=== PATIENT | female | born 1980 | race Caucasian/White ===

== ENCOUNTER 2016-12-24 06:50 | Day surgery (SDC) | payer MEDICAID ==
[~2016-12-24 06:50] MED LIST: Bacitracin Oint 1 GM U/D Packet ONE; Bupivacaine 0.5% 50 ML MDV ONE; Lidocaine 1% with EPINEPHrine 1:100,000 50 ML MDV ONE
[2016-12-24] MEDS ORDERED: Rocuronium 50 MG/5 ML Vial ONE (07:06)
[2016-12-24] MEDS ORDERED: Propofol 200 MG/20 ML SDV ONE (07:06)
[2016-12-24] MEDS ORDERED: Dexamethasone 4 MG/ML SDV ONE (07:06)
[2016-12-24] MEDS ORDERED: Neostigmine Methylsulfate 1 MG/ML 5 ML Syringe ONE (07:06)
[2016-12-24] MEDS ORDERED: Succinylcholine 200 MG/10 ML MDV ONE (07:06)
[2016-12-24] MEDS ORDERED: Ondansetron 4 MG/2 ML SDV ONE ×2 (07:06→09:10)
[2016-12-24] MEDS ORDERED: Glycopyrrolate 0.2 MG/ML 5 ML MDV ONE (07:06)
[2016-12-24] MEDS ORDERED: metroNIDAZOLE/Normal Saline 500 MG in Premix Bag 1 BAG IV ONE (07:30)
[2016-12-24] MEDS ORDERED: Scopolamine 1.5 MG Transdermal Patch TRDERM SCH (07:45)
[2016-12-24] MEDS: Sodium Chloride 0.9% 1,000 ML IV SCH ×2 (07:57→12:18)
[2016-12-24] MEDS ORDERED: diphenhydrAMINE 50 MG/ML SDV IVPUSH PRN (08:17)
[2016-12-24] MEDS ORDERED: Zolpidem 5 MG Tab PO PRN (08:17)
[2016-12-24] MEDS ORDERED: Benzocaine/Cetylpyridinium/Menthol Lozenge MUCMEM PRN (08:17)
[2016-12-24] MEDS ORDERED: Ciprofloxacin in D5W 400 MG in Premix Bag 1 BAG IV ONE ×2 (08:30)
[2016-12-24] MEDS ORDERED: Ketorolac 60 MG/2 ML SDV ONE (09:19)
[2016-12-24] MEDS ORDERED: hydrOXYzine HCl 100 MG/2 ML SDV IM ONE (10:30)
[2016-12-24] MEDS ORDERED: Metoclopramide 10 MG/2 ML SDV IVPUSH ONE (10:30)
--- NOTE | 2016-12-24 11:34 | OR ---
DATE OF PROCEDURE: 12/24/2016 PROCEDURES PERFORMED: 1. Laparoscopic cholecystectomy. 2. Liver biopsy. COMPLICATIONS: None. SPECIAL EDUCATION COORDINATOR: None. ANESTHESIA: General/local. INDICATIONS: This is a 36-year-old female with cholelithiasis, cholecystitis, and elevated liver function tests, requiring gallbladder removal and liver biopsy. RISKS: Risks, benefits, alternatives, and limitations including, but not limited to infection, bleeding, injury to common bile duct, cystic duct leaks, abscess, biloma, possibility of open surgery, and other risks were explained to the patient, and she wished to proceed. PROCEDURE IN DETAIL: The patient was placed in supine position. A supraumbilical curvilinear incision was made. A Veress needle was used to enter the abdomen without abnormality. A drop test was performed without abnormality. The abdomen was subsequently insufflated. This was followed by an Optiview trocar. An additional 10 and two 5 mm ports were entered under direct visualization. The gallbladder was retracted cephalad. The infundibulum was retracted inferolaterally. It was immediately noted that there was a large amount of inflammation around the gallbladder itself. During this process, blunt and sharp dissection were used in combination to reflect the stomach and its associated adhesions from the gallbladder itself. The anatomy of the gallbladder was unique. This had a significant fold associated with this. Photos were taken of the gallbladder itself. It was reflected back on itself. Therefore, the gallbladder was completely dissected off the gallbladder bed prior to transsection of the gallbladder. A complete dissection of this was then performed using blunt dissection with one pulsatile structure in the gallbladder and a single nonpulsatile structure in the gallbladder. Once this was completed, a blue load stapler was used to transect the cystic duct in close proximity to the gallbladder. This was verified that the byron were completely crossed. Photos were taken of this. The gallbladder was removed without difficulty using a bag through the upper port. The ports were then thoroughly irrigated. The wound was closed with 3-0 Vicryl and 4-0 Vicryl interrupted running fashion. Local was applied. The patient tolerated the procedure well. uT Umana MD /[id number]
[2016-12-24] MEDS ORDERED: Acetaminophen/HYDROcodone 325-5 MG Tab PO PRN (14:01)
[2016-12-24 14:47] VITALS: BP 98/47
== END 2016-12-24 18:00 | disposition home or self-care (01) ==
LOC: JP.SDS 06:50 → JP.MS 08:17 → JP.SDS 18:00
PROVIDERS: ATTEND Surgery
DX: K80.12 Calculus of gallbladder with acute and chronic cholecystitis without obstruction (principal); K76.0 Fatty (change of) liver, not elsewhere classified; Z88.0 Allergy status to penicillin; Z91.030 Bee allergy status; Z88.8 Allergy status to other drugs, medicaments and biological substances; F17.210 Nicotine dependence, cigarettes, uncomplicated; Z91.09 Other allergy status, other than to drugs and biological substances
CPT/HCPCS: 36415; 47001; 47562; 80053; 85027; A9270; J0330; J0744; J1100; J1885; J2405; J2704; J2710; J2765; J3010; J3410; J7040; 88304; 88307; 88313

== ENCOUNTER 2017-07-27 21:25 | Emergency (ER) | payer MEDICAID ==
[2017-07-27 21:36] VITALS: BP 126/69
[2017-07-27] MEDS ORDERED: cefTRIAXone 1 GM, Lidocaine 1% 2.1 ML IM ONE ×4 (21:52→22:29)
[2017-07-27] MEDS ORDERED: Ketorolac 60 MG/2 ML SDV IM ONE (21:53)
--- NOTE | 2017-07-27 22:03 | EDM.PDOC ---
ED HPI GENERAL MEDICAL PROBLEM - General Chief Complaint: Lower Extremity Injury/Pain Stated Complaint: LEFT KNEE POSSIBLE INFECTION Time Seen by Provider: 07/27/17 21:43 Source of Information: Reports: Patient History Limitations: Reports: No Limitations - History of Present Illness INITIAL COMMENTS - FREE TEXT/NARRATIVE: 36 yo female presents with left knee pain. 3 weeks ago left knee surgery, over the last 3 days increase in pain and swelling of left knee. warm to the touch. mild body aches. denies fever or shills. denies SOB, CP, nausea or vomiting. left knee Pain Score (Numeric/FACES): 8 - Related Data Allergies Allergy/AdvReac Type Severity Reaction Status Date / Time bee venom protein (honey bee) Allergy Swelling Verified 07/27/17 21:36 Penicillins Allergy Hives Verified 07/27/17 21:36 ferrous sulfate AdvReac Vomiting Verified 07/27/17 21:36 [From Adam-Iron] Home Meds: Home Meds EPINEPHrine [Epipen] 0.3 ml IM ASDIRECTED PRN 01/13/15 [History] Hydrocodone/Acetaminophen [[place] 10-325 Tablet] 1 tab PO Q6HR PRN 12/20/16 [ History] Omeprazole Magnesium [Prilosec Otc] 40 mg PO DAILY 12/20/16 [History] Past Medical History Gastrointestinal History: Reports: Cholelithiasis Genitourinary History: Reports: Renal Calculus, UTI, 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: Hematologic History: Reports: Anemia, Other (See Below) Other Hematologic History: anemia during - Past Surgical History GI Surgical History: Reports: Appendectomy, Cholecystectomy Female Surgical History: Reports: Section, Tubal Ligation 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 Surgical History: Reports: Arthroscopic Knee, Carpal Tunnel, Other (See Below) Other 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 Surgeries/Procedures:: bunionectomy right foot Social & Family History - Tobacco Use Smoking Status *Q: Current Every Day Smoker Years of Tobacco use: 20 Packs/Tins Daily: 0.5 - Caffeine Use Caffeine Use: Reports: Coffee Review of Systems - Review of Systems Review Of Systems: See Below Constitutional: Denies: Chills, Fever Respiratory: Denies: Shortness of Breath Cardiovascular: Denies: Chest Pain GI/Abdominal: Denies: Abdominal Pain 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: Reports: Joint Pain ED EXAM, GENERAL - Physical Exam Exam: See Below Exam Limited By: No Limitations General Appearance: Alert, WD/WN, No Apparent Distress Respiratory/Chest: No Respiratory Distress, Lungs Clear, Normal Breath Sounds Cardiovascular: Regular Rate, Rhythm, No Murmur Extremities: Joint Swelling (left knee), Increased Warmth, Redness, Other ( scant drainage at incision, appearance of retained stich at distill end of ) Skin Exam: Warm, Dry, Intact, No Rash Course - Vital Signs Last Recorded V/S: Last Vital Signs Temp 37.3 C 07/27/17 21:39 Pulse 90 07/27/17 21:39 Resp 18 07/27/17 21:39 BP 126/69 07/27/17 21:39 Pulse Ox 97 07/27/17 21:39 - Orders/Labs/Meds Orders: Active Orders 24 hr Category Date Time Status CBC WITH AUTO DIFF [HEME] Stat Lab 07/27/17 22:31 Results CRP [C-REACTIVE PROTEIN] [CHEM] Stat Lab 07/27/17 22:31 Received CULTURE WOUND + SMEAR [RM] Stat Lab 07/27/17 22:30 Ordered SEDIMENTATION RATE MANUAL [HEME] Stat Lab 07/27/17 22:31 Results Labs: Laboratory Tests 07/27/17 Range/Units 22:31 WBC 14.8 H (4.5-11.0) K/uL RBC 4.12 (3.30-5.50) M/uL Hgb 13.1 (12.0-15.0) g/dL Hct 37.7 (36.0-48.0) % MCV 92 (80-98) fL MCH 32 H (27-31) pg MCHC 35 (32-36) % Plt Count 248 (150-400) K/uL Neut % (Auto) 74 H (36-66) % Lymph % (Auto) 15 L (24-44) % [place] % (Auto) 9 H (2-6) % Eos % (Auto) 2 (2-4) % Baso % (Auto) 0 (0-1) % Meds: Medications Discontinued Medications Generic Name Dose Route Start Last Admin Trade Name Freq PRN Reason Stop Dose Admin Ceftriaxone Sodium 1 gm/ 0 gm 07/27/17 21:52 07/27/17 22:04 Lidocaine HCl 2.1 ml IM 07/27/17 21:53 1 inj ONETIME ONE Administration Ceftriaxone Sodium 1 gm/ 0 gm 07/27/17 22:29 Lidocaine HCl 2.1 ml IM 07/27/17 22:30 ONETIME ONE Ketorolac Tromethamine 60 mg 07/27/17 21:53 07/27/17 22:04 Toradol IM 07/27/17 21:54 60 mg ONETIME ONE Administration - Re-Assessments/Exams Free Text/Narrative Re-Assessment/Exam: 07/27/17 22:40 IM Rocephin 2 G. phone contact with [facility]. instructed to have pt follow-up in urgent care tomorrow afternoon at 1300 Departure - Departure Time of Disposition: 22:44 Disposition: Home, Self-Care 01 Condition: Good Clinical Impression: Knee pain, acute Qualifiers: Laterality: left Qualified Code(s): M25.562 - Pain in left knee Post op infection Qualifiers: Encounter type: initial encounter Qualified Code(s): T81.4XXA - Infection following a procedure, initial encounter - Discharge Information Referrals: Jose Sands MD [Primary Care Provider] - Forms: ED Department Discharge Additional Instructions: follow-up in [facility] [place] tomorrow at 1300 may use NOrco that you have at home as prescribed tonight for pain control you were given 2 G of Rochephin in the Emergency room tonight also given 60 mg of Ketoralac Lab values from tonights visit WBC 14.8 Neut % 74 Lymph% 15 [place] % 9 SED and CRP were pending at the time of DC - My Orders Last 24 Hours: My Active Orders 07/27/17 22:30 CULTURE WOUND + SMEAR [RM] Stat 07/27/17 22:31 CBC WITH AUTO DIFF [HEME] Stat CRP [C-REACTIVE PROTEIN] [CHEM] Stat SEDIMENTATION RATE MANUAL [HEME] Stat - Assessment/Plan Last 24 Hours: My Active Orders 07/27/17 22:30 CULTURE WOUND + SMEAR [RM] Stat 07/27/17 22:31 CBC WITH AUTO DIFF [HEME] Stat CRP [C-REACTIVE PROTEIN] [CHEM] Stat SEDIMENTATION RATE MANUAL [HEME] Stat
== END 2017-07-27 22:55 | disposition home or self-care (01) ==
LOC: JP.ED 21:25
DX: T81.4XXA Infection following a procedure, initial encounter (principal); M25.562 Pain in left knee; F17.210 Nicotine dependence, cigarettes, uncomplicated; Z88.0 Allergy status to penicillin; Z91.030 Bee allergy status; Z91.09 Other allergy status, other than to drugs and biological substances; Z79.899 Other long term (current) drug therapy
CPT/HCPCS: 36415; 85025; 85651; 86140; 87070; 87205; 96372; 99284; J0696; J1885; 87077; 87186

== ENCOUNTER 2018-05-27 17:30 | Emergency (ER) | payer BC, MEDICAID ==
[2018-05-27 17:49] VITALS: BP 129/74
[2018-05-27] MEDS ORDERED: Ketorolac 60 MG/2 ML SDV IM ONE (18:18)
--- NOTE | 2018-05-27 18:33 | EDM.PDOC ---
ED HPI GENERAL MEDICAL PROBLEM - General Chief Complaint: Genitourinary Problem Stated Complaint: abd pain that goes to the back light head also Time Seen by Provider: 05/27/18 18:09 Source of Information: Reports: Patient History Limitations: Reports: No Limitations - History of Present Illness INITIAL COMMENTS - FREE TEXT/NARRATIVE: This lady comes in for left lower quadrant abdominal pain which started earlier today. She also got burning on urination. She's had many urinary tract infections before like 6 or 7 per year but she's never had pain like this before. She denies any fever but thinks maybe she might of had some chills. Bactrim causes sores in her mouth. Left Lower Abdomen Pain Score (Numeric/FACES): 8 - Related Data Allergies Allergy/AdvReac Type Severity Reaction Status Date / Time bee venom protein (honey bee) Allergy Swelling Verified 05/27/18 17:42 Penicillins Allergy Hives Verified 05/27/18 17:42 ferrous sulfate AdvReac Vomiting Verified 05/27/18 17:42 [From Adam-Iron] Home Meds: Home Meds EPINEPHrine [Epipen] 0.3 ml IM ASDIRECTED PRN 01/13/15 [History] Hydrocodone/Acetaminophen [[place] 10-325 Tablet] 1 tab PO Q6HR PRN 12/20/16 [ History] Past Medical History HEENT History: Reports: Impaired Vision Gastrointestinal History: Reports: Cholelithiasis Genitourinary History: Reports: Renal Calculus, UTI, 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: 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 History: Reports: None Endocrine/Metabolic History: Reports: Obesity/BMI 30+ Hematologic History: Reports: Anemia, Other (See Below) Other Hematologic History: anemia during - Infectious Disease History Infectious Disease History: Reports: Chicken Pox - Past Surgical History Head Surgeries/Procedures: Reports: None HEENT Surgical History: Reports: None GI Surgical History: Reports: Appendectomy, Cholecystectomy Female Surgical History: Reports: Section, Tubal Ligation Endocrine Surgical History: Reports: None 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 Surgical History: Reports: Arthroscopic Knee, Carpal Tunnel, Other (See Below) Other 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 Surgeries/Procedures:: bunionectomy right foot Dermatological Surgical History: Reports: None Social & Family History - Tobacco Use Smoking Status *Q: Current Every Day Smoker Years of Tobacco use: 15 Packs/Tins Daily: 0.5 Used Tobacco, but Quit: No Second Hand Smoke Exposure: Yes - Caffeine Use Caffeine Use: Reports: Coffee - Recreational Drug Use Recreational Drug Use: No ED ROS GENERAL - Review of Systems Review Of Systems: ROS reveals no pertinent complaints other than HPI. ED EXAM, RENAL/ - Physical Exam Exam: See Below (The Flomax her carpal tunnel youLow October and obese) Exam Limited By: No Limitations (iron) General Appearance: Alert, WD/WN, Mild Distress (Ligament fingers) GI/Abdominal: Non-Tender (All the way or) Back Exam: No: CVA Tenderness (R), CVA Tenderness (L) Skin Exam: Warm, Dry Course - Vital Signs Last Recorded V/S: Last Vital Signs Temp 35.5 C 05/27/18 17:43 Pulse 67 05/27/18 17:43 Resp 16 05/27/18 17:43 BP 129/74 05/27/18 17:43 Pulse Ox 99 05/27/18 17:43 - Orders/Labs/Meds Orders: Active Orders 24 hr Category Date Time Status CULTURE URINE [RM] Stat Lab 05/27/18 18:22 Ordered Labs: Laboratory Tests 05/27/18 Range/Units 17:49 Urine Color Yellow Urine Appearance Cloudy Urine pH 5.0 (4.5-8.0) Ur Specific [place] 1.020 (1.008-1.030) Urine Protein 30 H (NEGATIVE) mg/dL Urine Glucose (UA) Negative (NEGATIVE) mg/dL Urine Ketones Negative (NEGATIVE) mg/dL Urine Occult Blood Large (NEGATIVE) Urine Nitrite Positive H (NEGATIVE) Urine Bilirubin Negative (NEGATIVE) Urine Urobilinogen Normal (NORMAL) mg/dL Ur Leukocyte Esterase Moderate (NEGATIVE) Urine RBC Packed H (0-5) Urine WBC Packed H (0-5) Ur Epithelial Cells Few Amorphous Sediment Moderate Urine Bacteria Moderate Urine Mucus Few Meds: Medications Discontinued Medications Generic Name Dose Route Start Last Admin Trade Name Freq PRN Reason Stop Dose Admin Ketorolac Tromethamine 60 mg 05/27/18 18:18 Toradol IM 05/27/18 18:19 ONETIME ONE Departure - Departure Time of Disposition: 18:27 Disposition: Home, Self-Care 01 Condition: Fair Clinical Impression: UTI, Urinary tract infectious disease - Discharge Information Referrals: Jose Sands MD [Primary Care Provider] - Additional Instructions: The urine test indicates that you have an infection in the urine. The amount of pain that you are having suggests that it might be starting to get up into the ureters. Because you don't have fever or tenderness over the kidney it probably is not a full-blown kidney infection yet but would progress to that if left untreated. Take the antibiotic Cipro 500 mg 1 tablet twice daily for 7 days. A culture is being done on the urine so if you are not better in 2 days then see your doctor. Sometimes, especially in a person who is had a lot of urinary tract infections, bacteria will develop resistance to antibiotics and the culture would show this. You also received a prescription for [place] 5/325#18 tablets take one or 2 every 4 hours as needed for pain. This medication can cause sedation, impaired driving , and could even lead to addiction if abused. It contains Tylenol. If you decide to take a Tylenol tablet along with 1 tablet of the [place] and just be sure you limit yourself to 4000 mg per day of Tylenol. You may take ibuprofen along with the Cipro and Narco. Be sure to drink a lot of water. See your Dr. or return to ER if no better in 2 days. - My Orders Last 24 Hours: My Active Orders 05/27/18 18:22 CULTURE URINE [RM] Stat - Assessment/Plan Last 24 Hours: My Active Orders 05/27/18 18:22 CULTURE URINE [RM] Stat
== END 2018-05-27 18:39 | disposition home or self-care (01) ==
LOC: JP.ED 17:30
DX: N39.0 Urinary tract infection, site not specified (principal); F17.210 Nicotine dependence, cigarettes, uncomplicated; Z91.030 Bee allergy status; Z79.899 Other long term (current) drug therapy
CPT/HCPCS: 81001; 87086; 96372; 99284; J1885

== ENCOUNTER 2018-10-03 22:28 | Emergency (ER) | payer BC, OTHER ==
[2018-10-03 22:57] VITALS: BP 124/80; PULSE 81
--- NOTE | 2018-10-04 00:36 | CRLCT ---
INDICATION: Abdominal hernia, pain. TECHNIQUE: CT abdomen and pelvis without contrast. COMPARISON: None. FINDINGS: Lower chest: Unremarkable. Liver: Normal in size and attenuation. No masses. Gallbladder and bile ducts: Status post cholecystectomy. Pancreas: Unremarkable. No mass or inflammation. Spleen: Normal in size. No masses. Adrenal glands: Normal in size. No nodules. Kidneys: Nephrolithiasis without hydronephrosis, however there is a stone within the right renal pelvis measuring 11 x 8 millimeters. GI tract: No dilated loops of large or small intestine. Suture line at the cecal tip suggesting prior appendectomy. Vasculature: Unremarkable. Pelvis: Unremarkable. No pelvic masses. Bones: Unremarkable for age. IMPRESSION: 1. Nephrolithiasis without evidence of hydronephrosis or ureteral stone. 2. No dilated bowel or localizing inflammation. Please note that all CT scans at this facility use dose modulation, iterative reconstruction, and/or weight-based dosing when appropriate to reduce radiation dose to as low as reasonably achievable. Dictated by Kee Deleon MD @ Oct 04 2018 12:29AM Signed by Dr. Kee Deleon @ Oct 04 2018 12:34AM
--- NOTE | 2018-10-04 00:41 | EDM.PDOC ---
ED HPI GENERAL MEDICAL PROBLEM - General Chief Complaint: Abdominal Pain Stated Complaint: BULGE IN STOMACH Time Seen by Provider: 10/03/18 23:00 Source of Information: Reports: Patient History Limitations: Reports: No Limitations - History of Present Illness INITIAL COMMENTS - FREE TEXT/NARRATIVE: 38-year-old female who had a vague discomfort in her right abdomen over the past week, has been very active moving and developed worsening pain just right of the umbilicus and feels a "bulge". No nausea or vomiting, bowels are moving, no fevers or chills, no radiation of pain, no decreased appetite. Onset: Gradual Duration: Week(s): (Symptoms have been ongoing for a couple of weeks, much worse the last 24-48 hours) Location: Reports: Abdomen Quality: Reports: Ache, Throbbing Associated Symptoms: Reports: No Other Symptoms Right Middle Abdomen Pain Score (Numeric/FACES): 7 - Related Data Allergies Allergy/AdvReac Type Severity Reaction Status Date / Time bee venom protein (honey bee) Allergy Swelling Verified 05/27/18 17:42 Penicillins Allergy Hives Verified 05/27/18 17:42 ferrous sulfate AdvReac Vomiting Verified 05/27/18 17:42 [From Adam-Iron] Home Meds: Home Meds EPINEPHrine [Epipen] 0.3 ml IM ASDIRECTED PRN 01/13/15 [History] Past Medical History HEENT History: Reports: Impaired Vision Gastrointestinal History: Reports: Cholelithiasis Genitourinary History: Reports: Renal Calculus, UTI, 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: 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 History: Reports: None Endocrine/Metabolic History: Reports: Obesity/BMI 30+ Hematologic History: Reports: Anemia, Other (See Below) Other Hematologic History: anemia during - Infectious Disease History Infectious Disease History: Reports: Chicken Pox - Past Surgical History Head Surgeries/Procedures: Reports: None HEENT Surgical History: Reports: None GI Surgical History: Reports: Appendectomy, Cholecystectomy Female Surgical History: Reports: Section, Tubal Ligation Endocrine Surgical History: Reports: None 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 Surgical History: Reports: Arthroscopic Knee, Carpal Tunnel, Other (See Below) Other 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 Surgeries/Procedures:: bunionectomy right foot Dermatological Surgical History: Reports: None Social & Family History - Family History Family Medical History: Noncontributory - Tobacco Use Smoking Status *Q: Current Every Day Smoker Years of Tobacco use: 20 Packs/Tins Daily: 0.5 - Caffeine Use Caffeine Use: Reports: Coffee Caffeine Use Comment: daily coffee use, rarely drink soda or tea. - Alcohol Use Days Per Week of Alcohol Use: 3 Number of Drinks Per Day: 3 Total Drinks Per Week: 9 - Recreational Drug Use Recreational Drug Use: No ED ROS GENERAL - Review of Systems Review Of Systems: See Below Constitutional: Denies: Fever, Chills, Malaise, Decreased Appetite HEENT: Reports: No Symptoms Respiratory: Denies: Shortness of Breath Cardiovascular: Denies: Chest Pain GI/Abdominal: Reports: Abdominal Pain. Denies: Constipation, Diarrhea, Nausea, Vomiting : Reports: No Symptoms Skin: Reports: No Symptoms Neurological: Reports: No Symptoms ED EXAM, GI/ABD - Physical Exam Exam: See Below Exam Limited By: No Limitations General Appearance: Alert, No Apparent Distress Eyes: Bilateral: Normal Appearance Respiratory/Chest: No Respiratory Distress, Lungs Clear GI/Abdominal Exam: Normal Bowel Sounds, Soft, Tender (She is tender to palpation just to the right of the umbilicus and epigastric area, but I feel no bulging, mass, hernia or other abnormality) Extremities: Normal Inspection Neurological: Alert, Oriented Psychiatric: Normal Affect, Normal Mood Skin Exam: Warm, Dry Course - Vital Signs Last Recorded V/S: Last Vital Signs Temp 96.8 F 10/03/18 23:10 Pulse 81 10/03/18 23:10 Resp 18 10/03/18 23:10 BP 124/80 10/03/18 23:10 Pulse Ox 96 10/03/18 23:10 - Orders/Labs/Meds Labs: Laboratory Tests 10/03/18 10/03/18 Range/Units 23:35 23:35 WBC 8.8 (4.5-11.0) K/uL RBC 4.16 (3.30-5.50) M/uL Hgb 13.0 (12.0-15.0) g/dL Hct 38.6 (36.0-48.0) % MCV 93 (80-98) fL MCH 31 (27-31) pg MCHC 34 (32-36) % Plt Count 248 (150-400) K/uL Neut % (Auto) 45 (36-66) % Lymph % (Auto) 39 (24-44) % [place] % (Auto) 11 H (2-6) % Eos % (Auto) 4 (2-4) % Baso % (Auto) 1 (0-1) % Sodium 143 (140-148) mmol/L Potassium 3.4 L (3.6-5.2) mmol/L Chloride 108 (100-108) mmol/L Carbon Dioxide 24 (21-32) mmol/L Anion Gap 14.4 H (5.0-14.0) mmol/L BUN 11 (7-18) mg/dL Creatinine 0.8 (0.6-1.0) mg/dL Est Cr Clr Drug Dosing 81.53 mL/min Estimated GFR (MDRD) > 60 (>60) Glucose 93 (74-106) mg/dL Calcium 8.3 L (8.5-10.1) mg/dL - Re-Assessments/Exams Free Text/Narrative Re-Assessment/Exam: 10/04/18 00:40 CBC and BMP were obtained which were normal. A CT of the abdomen was obtained without contrast because of her several abdominal surgeries in the past to rule out any incision or umbilical hernia. This was normal. Patient was informed she has a muscle strain of the abdomen and it should improve over time. She can recheck in 5-7 days if not improving satisfactorily. Ibuprofen should help along with limiting activity. Departure - Departure Time of Disposition: 00:43 Disposition: Home, Self-Care 01 Clinical Impression: Abdominal muscle strain Qualifiers: Encounter type: initial encounter Qualified Code(s): S39.011A - Strain of muscle, fascia and tendon of abdomen, initial encounter - Discharge Information Instructions: Muscle Strain, [id number] Referrals: Jose Sands MD [Primary Care Provider] - Forms: ED Department Discharge Care Plan Goals: Decrease activity over the next several days, ibuprofen on a regular basis may help and recheck in 5-7 days if not improving satisfactorily. You can return sooner if worsening such as fever or vomiting.
== END 2018-10-04 00:43 | disposition home or self-care (01) ==
LOC: JP.ED 22:28
DX: S39.011A Strain of muscle, fascia and tendon of abdomen, initial encounter (principal); F17.210 Nicotine dependence, cigarettes, uncomplicated; E66.9 Obesity, unspecified; Z68.30 Body mass index [BMI] 30.0-30.9, adult; Z91.030 Bee allergy status; Z88.0 Allergy status to penicillin; Z90.49 Acquired absence of other specified parts of digestive tract; Z98.51 Tubal ligation status
CPT/HCPCS: 36415; 74176; 80048; 85025; 99284-25

== ENCOUNTER 2020-07-14 21:50 | Emergency (ER) | payer BC, OTHER ==
[2020-07-14 22:09] VITALS: BP 113/78; PULSE 86
[2020-07-14] MEDS ORDERED: Ketorolac 30 MG/ML SDV IM ONE (22:32)
--- NOTE | 2020-07-14 22:37 | EDM.PDOC ---
ED HPI GENERAL MEDICAL PROBLEM - General Chief Complaint: Lower Extremity Injury/Pain Stated Complaint: POSSIBLE BROKEN ANKEL. LEFT SIDE Time Seen by Provider: 07/14/20 22:23 Source of Information: Reports: Patient History Limitations: Reports: No Limitations - History of Present Illness INITIAL COMMENTS - FREE TEXT/NARRATIVE: Mitra is a 39-year-old female presenting to the ED for evaluation of left ankle pain and swelling over the lateral malleolus. Patient was in her usual state of health when she was trying to install a franz's hook into the ground. She was stomping on it like you would a shovel when her foot slid off of the bar causing her to invert her foot and ankle. She immediately had pain and swelling over the lateral malleolus and lateral foot. The injury occurred last night and she has been hobbling on the foot all day today. Her friend talked her into coming in to make sure she did not break her ankle as it has become significantly more swollen and bruised. She denies any distal numbness or tingling. She has good distal pulses. 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 left foot/ankle Pain Score (Numeric/FACES): 7 - Related Data Allergies Allergy/AdvReac Type Severity Reaction Status Date / Time bee venom protein (honey bee) Allergy Swelling Verified 07/14/20 22:13 Penicillins Allergy Hives Verified 07/14/20 22:13 ferrous sulfate AdvReac Vomiting Verified 07/14/20 22:13 [From Adam-Iron] Home Meds: Home Meds EPINEPHrine [Epipen] 0.3 ml IM ASDIRECTED PRN 01/13/15 [History] Past Medical History HEENT History: Reports: Impaired Vision, Other (See Below) Other HEENT History: glasses Gastrointestinal History: Reports: Cholelithiasis Genitourinary History: Reports: Renal Calculus, UTI, Recurrent ANESTHESIA ASSOCIATE History: Reports: 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 History: Reports: None Endocrine/Metabolic History: Reports: Obesity/BMI 30+ Hematologic History: Reports: Anemia, Other (See Below) Other Hematologic History: anemia during - Infectious Disease History Infectious Disease History: Reports: Chicken Pox - Past Surgical History Head Surgeries/Procedures: Reports: None HEENT Surgical History: Reports: None GI Surgical History: Reports: Appendectomy, Cholecystectomy Female Surgical History: Reports: Section, Tubal Ligation Endocrine Surgical History: Reports: None 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 Surgical History: Reports: Arthroscopic Knee, Carpal Tunnel, Other (See Below) Other 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 Surgeries/Procedures:: bunionectomy right foot Social & Family History - Family History Family Medical History: No Pertinent Family History - Tobacco Use Tobacco Use Status *Q: Current Every Day Tobacco User Years of Tobacco use: 20 Packs/Tins Daily: 0.5 - Caffeine Use Caffeine Use: Reports: Coffee Caffeine Use Comment: daily coffee use, rarely drink soda or tea. Review of Systems - Review of Systems Review Of Systems: See Below Constitutional: Reports: No Symptoms Respiratory: Reports: No Symptoms Cardiovascular: Reports: No Symptoms GI/Abdominal: Reports: No Symptoms Genitourinary: Reports: No Symptoms 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: Reports: Foot Pain (Left foot pain), Joint Pain (Left lateral ankle pain), Joint Swelling (Left lateral ankle swelling) Skin: Reports: Bruising (Left lateral ankle) Neurological: Reports: No Symptoms ED EXAM, GENERAL - Physical Exam Exam: See Below Exam Limited By: No Limitations General Appearance: Alert, No Apparent Distress Cardiovascular: Normal Peripheral Pulses, Regular Rate, Rhythm Peripheral Pulses: 2+: Posterior Tibial (L), Dorsalis Pedis (L) Extremities: Joint Swelling (Significant swelling and pain over the lateral malleolus and lateral left foot with bruising just below the lateral malleolus. Tenderness with palpation over the anterior talofibular ligament.), Limited Range of Motion (Increased pain with inversion, flexion, and extension of the left ankle) Neurological: Alert, Oriented, Normal Cognition, No Motor/Sensory Deficits Skin Exam: Ecchymosis (Over the lateral left foot below the lateral malleolus) Course - Vital Signs Last Recorded V/S: Last Vital Signs Temp 36.2 C 07/14/20 22:10 Pulse 86 07/14/20 22:10 Resp 16 07/14/20 22:10 BP 113/78 07/14/20 22:10 Pulse Ox 96 07/14/20 22:10 - Orders/Labs/Meds Orders: Active Orders 24 hr Category Date Time Status Ankle Min 3V Lt [CR] Stat Exams 07/14/20 22:32 Ordered Meds: Medications Discontinued Medications Generic Name Dose Route Start Last Admin Trade Name Freq PRN Reason Stop Dose Admin Ketorolac Tromethamine 30 mg 07/14/20 22:32 Ketorolac 30 Mg/Ml Sdv IM 07/14/20 22:33 ONETIME ONE - Radiology Interpretation Free Text/Narrative:: X-ray of the left ankle fails to demonstrate any acute osseous abnormalities. There is significant soft tissue swelling over the lateral malleolus. - Re-Assessments/Exams Free Text/Narrative Re-Assessment/Exam: 07/14/20 22:47 x-rays of the ankle failed to demonstrate any acute abnormalities except for soft tissue swelling over the lateral malleolus. This is an inversion sprain of the ankle causing disruption to the delta and anterior talofibular ligaments. We will put her in a walking boot with instructions to ice, elevate, and rest the ankle when not up and ambulating but using the boot when she is ambulating to prevent further inversion of the ankle. She may take Tylenol or ibuprofen for pain. Indications return to the ED are discussed. We will likely take 7 to 10 days for her to fully recover. Departure - Departure Time of Disposition: 22:48 Disposition: Home, Self-Care 01 Clinical Impression: Inversion sprain of left ankle Qualifiers: Encounter type: initial encounter Qualified Code(s): S93.402A - Sprain of unspecified ligament of left ankle, initial encounter - Discharge Information Instructions: Ankle Sprain, Phase I Rehab-SportsMed Referrals: Jose Sands MD [Primary Care Provider] - Forms: ED Department Discharge Care Plan Goals: I recommend ice, elevation, and rest of the ankle when not up and ambulating around. You may take Tylenol or ibuprofen for pain control. When up and ambulating I recommend that she wear the boot which will protect you from further inversion injury of the ankle. This will likely take 7 to 10 days to recover. You will definitely have some bruising of the lateral foot. You should have full recovery and normal use of the ankle within 2 to 3 weeks. Sepsis Event Note (ED) - Evaluation Sepsis Screening Result: No Definite Risk - Focused Exam Vital Signs: Vital Signs Temp Pulse Resp BP Pulse Ox 07/14/20 22:10 36.2 C 86 16 113/78 96 07/14/20 22:07 36.2 C 86 16 113/78 96 - Problem List & Annotations (1) Inversion sprain of left ankle SNOMED Code(s): 37169351 Code(s): S93.402A - SPRAIN OF UNSPECIFIED LIGAMENT OF LEFT ANKLE, INIT ENCNTR Status: Acute Priority: Medium Current Visit: Yes Qualifiers: Encounter type: initial encounter Qualified Code(s): S93.402A - Sprain of unspecified ligament of left ankle, initial encounter - Problem List Review Problem List Initiated/Reviewed/Updated: Yes - My Orders Last 24 Hours: My Active Orders 07/14/20 22:32 Ankle Min 3V Lt [CR] Stat - Assessment/Plan Last 24 Hours: My Active Orders 07/14/20 22:32 Ankle Min 3V Lt [CR] Stat
--- NOTE | 2020-07-17 12:45 | CRLCR ---
HISTORY: Left ankle pain and swelling. TECHNIQUE: Three views of left ankle. COMPARISON: No prior. FINDINGS: Soft tissue swelling adjacent to the lateral malleolus. No acute fracture. No widening of the ankle mortise. Spurring at the Achilles attachment to posterior calcaneus. Os trigonum. Chronic appearing ossicle along the dorsal proximal aspect of the navicular bone. IMPRESSION: 1. No acute fracture. 2. Soft tissue swelling overlying the lateral malleolus. Dictated by Lazaro Mitchell MD @ 07/17/2020 12:43:[address] Lazaro Mitchell @ Jul 17 2020 12:43PM
== END 2020-07-14 23:11 | disposition home or self-care (01) ==
LOC: JP.ED 21:50
DX: S93.402A Sprain of unspecified ligament of left ankle, initial encounter (principal); E66.9 Obesity, unspecified; Z88.0 Allergy status to penicillin; Z91.030 Bee allergy status; Z88.8 Allergy status to other drugs, medicaments and biological substances; Z72.0 Tobacco use; Z68.32 Body mass index [BMI] 32.0-32.9, adult; X50.1XXA Overexertion from prolonged static or awkward postures, initial encounter
CPT/HCPCS: 73610; 96372; 99283; J1885